=== PATIENT | female | born 1955 | race Caucasian/White ===

== ENCOUNTER 2024-02-24 11:17 | Observation (INO) ==
[~2024-02-24 11:17] MED LIST: NS 0.45% 1000 ml BAG 1,000 ML IV SCH; Naloxone 0.4 mg VIAL 0.4 mg/ml 1 ml VIAL IV PRN; fentaNYL 100 mcg/2 ml 50 MCG/ML VIAL IV PRN
[2024-02-24] MEDS ORDERED: Tranexamic Acid 1 GM/100ML BAG 2,000 MG/200 ML BAG IV ONE ×2 (11:58→14:42)
[2024-02-24] MEDS ORDERED: ceFAZolin 2 GM PREMIX 2 GM/50 ML BAG ONE (11:58)
[2024-02-24 12:00] LABS: Rapid COVID-19 Molecular Undetected (Undetected)
[2024-02-24] MEDS: Lactated Ringers 1000 ml BAG 1,000 ML IV SCH ×2 (12:02→18:50)
[2024-02-24] MEDS ORDERED: Midazolam 2 mg/2 ml VIAL 1 mg/ml 2 ml VIAL (2 mg) ONE ×3 (12:04→13:49)
[2024-02-24] MEDS ORDERED: Lidocaine 2% PF 5 ML VIAL ONE (12:08)
[2024-02-24] MEDS ORDERED: Dexamethasone IV 4 MG/ML VIAL 1 ml VIAL ONE ×2 (12:08→13:50)
[2024-02-24] MEDS ORDERED: fentaNYL 100 mcg/2 ml 50 MCG/ML VIAL ONE ×4 (12:08→16:41)
[2024-02-24] MEDS ORDERED: Ondansetron 4 mg VIAL 2 MG/ML 2 ml VIAL ONE ×2 (12:08→17:26)
[2024-02-24] MEDS ORDERED: Propofol 10 MG/ML 20 ML BTL ONE ×4 (12:08→15:14)
[2024-02-24] MEDS ORDERED: Famotidine IV 10 MG/ML 2 ml VIAL (20 mg) ONE (13:50)
[2024-02-24] MEDS ORDERED: ROPIVACAINE 5 MG/ML 30 ML BTL (0.5%) ONE ×2 (13:50→13:56)
[2024-02-24] MEDS ORDERED: Lactulose 30 ml UDC PO PRN (17:08)
[2024-02-24] MEDS ORDERED: Calcium Carb (TUMS) 500 mg CHEW TAB PO PRN (17:08)
[2024-02-24] MEDS ORDERED: Magnesium Hydroxide LIQ 30 ML UDC PO PRN (17:08)
[2024-02-24] MEDS ORDERED: Ondansetron ODT 4 mg TAB 4 MG TAB PO PRN (17:08)
[2024-02-24] MEDS: Ondansetron 4 mg VIAL 2 MG/ML 2 ml VIAL IV PRN ×2 (17:30→23:34)
[2024-02-24] MEDS: Magnesium Hydroxide LIQ 30 ML UDC PO SCH (20:35)
[2024-02-24] MEDS: Acetaminophen IV 1 GM/100ML 1,000 MG/100 ML BAG IV ONE (20:36)
[2024-02-24] MEDS: Buffered Lidocaine 1% SYRIN 1 ml INTRADERM ONE (20:36)
[2024-02-24] MEDS: Morphine 2 MG/ML SYRINGE IV PRN (23:29)
[2024-02-24] MEDS: ceFAZolin 2 GM PREMIX 2 GM/50 ML BAG IV SCH (23:38)
[2024-02-25 06:01] LABS: Hematocrit 37.6 % (35-45); Hemoglobin 12.3 g/dL (11.5-14.3); Mean Platelet Volume 6.5 fL (7.5-11.2); Platelet Count 307 10^3/uL (150-450)
[2024-02-25 06:30] LABS: Calcium 8.7 mg/dL (8.6-10.3); Creatinine, Serum 0.85 mg/dL (0.51-0.95); Potassium 4.2 mmol/L (3.5-5.0); eGFR CKD-EPI 73.7 (>60)
[2024-02-25] MEDS: NF: Multivitamins/Mins AREDS2 (NF) CAP PO SCH (08:17)
[2024-02-25] MEDS: Vitamin THERAPEUTIC TAB PO SCH (08:19)
[2024-02-25 13:50] VITALS: BP 136/74
== END 2024-02-25 15:20 | disposition home or self-care (01) ==
LOC: OR 11:17 → EDSTATUS 14:15 → INTOOBSV 17:08 → SSU 17:08
PROVIDERS: ADMIT Orthopaedic Surgery Adult Reconstructive Orthopaedic Surgery; ATTEND Orthopaedic Surgery Adult Reconstructive Orthopaedic Surgery